=== PATIENT | male | born 1990 | race Two or more races ===

== ENCOUNTER 2023-02-22 14:01 | Emergency (ER) | payer SELFPAY ==
[~2023-02-22] VITALS: Ht 172.7 cm; Wt 150.0 kg
[2023-02-22 18:46] VITALS: BP 132/84
== END 2023-02-22 18:48 ==
LOC: ER 14:01
DX: S00.91XA Abrasion of unspecified part of head, initial encounter (principal); Z53.21 Procedure and treatment not carried out due to patient leaving prior to being seen by health care provider; X58.XXXA Exposure to other specified factors, initial encounter; Y93.89 Activity, other specified; Y92.89 Other specified places as the place of occurrence of the external cause; Y99.8 Other external cause status